=== PATIENT | male | born 1980 | race Asian ===

== ENCOUNTER 2017-10-24 23:13 | Emergency (ER) | payer OTHER ==
[2017-10-24] MEDS ORDERED: ASPIRIN 81 MG CHEWABLE TABLETS PO ONE (23:31)
--- NOTE | 2017-10-24 23:34 | PDOC ---
Attending Attestation - HPI HPI: 10/24/17 23:48 The patient is a 37 year old male, with significant past medical history of sinusitis, who presents to the emergency department with chest pain. Patient describes his chest pain as intermittent, worsens upon burping.. Patient states that around 2 pm he began experiencing the chest pain which he states went away after eating and drinking water. He rates his current pain 3/10. He denies taking any medications to relieve the pain. States he is currently on antibiotics - Levaquin. He denies any recent fevers, chills, headache or dizziness. He denies any recent nausea, vomit, diarrhea or constipation. He denies any recent shortness of breath. He denies any recent dysuria, frequency, urgency or hematuria. Family Hx: paternal HTN, diabetes. Allergies: NKA Past surgical history: None reported. Social History: Nonsmoker. Denies EtOH use and recreational drug use. PCP: Dr. Han <Vanessa Snow - Last Filed: 10/24/17 23:54> - Resident Resident Name: Jose G Lind - ED Attending Attestation I have performed the following: I have examined & evaluated the patient, The case was reviewed & discussed with the resident, I agree w/resident's findings & plan, Exceptions are as noted - Physicial Exam PE: 10/24/17 23:42 *Physical Exam General Appearance: Yes: Appropriately Dressed. No: Apparent Distress, Intoxicated HEENT: positive: EOMI, ELIAN, Normal ENT Inspection, Normal Voice, TMs Normal, Pharynx Normal. negative: Pale Conjunctivae, Photophobia, Scleral Icterus (R), Scleral Icterus (L) Neck: positive: Trachea midline, Normal Thyroid, Supple. negative: Tender, Rigid, Carotid bruit, Stridor, Lymphadenopathy (R), Lymphadenopathy (L), Thyromegaly Respiratory/Chest: positive: Lungs Clear, Normal Breath Sounds. negative: Chest Tender, Respiratory Distress, Accessory Muscle Use, Labored Respiration, RES, Crackles, Rales, Rhonchi, Stridor, Wheezing, Dullness Cardiovascular: positive: Regular Rhythm, Regular Rate, S1, S2. negative: Edema , JVD, Murmur, Bradycardia, Tachycardia Vascular Pulses: Dorsalis-Pedis (R): 2+, Doralis-Pedis (L): 2+ Gastrointestinal/Abdominal: positive: Normal Bowel Sounds, Flat, Soft. negative : Tender, Organomegaly, Pulsatile Mass, Increased Bowel Sounds, Decreased BS, Distended, Guarding, Rebound, Hernia, Hepatomegaly, Spleenomegaly Lymphatic: negative: Adenopathy, Tenderness Musculoskeletal: positive: Normal Inspection. negative: CVA Tenderness, Decreased Range of Motion Extremity: positive: Normal Capillary Refill, Normal Inspection, Normal Range of Motion, Pelvis Stable. negative: Tender, Pedal Edema, Swelling, Erythema Integumentary: positive: Normal Color, Dry, Warm. negative: Cyanotic, Erythema , Jaundice, Rash Neurologic: positive: stud driver II-XII NML intact, Fully Oriented, Alert, Normal Mood/ Affect, Motor Strength 5/5. negative: EOM Palsy, Facial Droop, Sensory Deficit - Medical Decision Making 10/25/17 01:04 Pt troponin is 8.8. Pt to be transferred for cardiac catheterization. <Reuben Garzon - Last Filed: 10/25/17 01:06>
[2017-10-24 23:35] VITALS: TEMP 98.6
[2017-10-24 23:42] VITALS: BMI 31.0
[2017-10-24] MEDS ORDERED: NITROGLYCERIN 2% OINTMENT - 1GM PACKET TD ONE ×2 (23:42→23:44)
[2017-10-24 23:43] LABS: BASO % 0.2 % (0-2.0); EOS % 1.2 % (0-4.5); HEMATOCRIT 43.3 % (35.4-49); HEMOGLOBIN 14.6 GM/dL (11.7-16.9); LYMPH % 22.8 % (8-40); MCH 29.5 pg (25.7-33.7); MCHC 33.6 g/dl (32.0-35.9); MEAN CELL VOLUME 87.7 fl (80-96); MEAN PLT VOLUME 9.1 fl (7.5-11.1); MONO % 8.9 % (3.8-10.2); NEUT % 66.9 % (42.8-82.8); PLATELET COUNT 186 K/MM3 (134-434); RBC 4.94 M/mm3 (4.00-5.60); RDW 13.5 % (11.9-15.9); WHITE BLOOD COUNT 14.1 K/mm3 (4.0-10.0)
[2017-10-24] MEDS ORDERED: ASPIRIN 81 MG CHEWABLE TABLETS ONE (23:44)
[2017-10-25 00:08] LABS: INR 1.27 (0.82-1.09); PROTHROMBIN TIME (PATIENT) 14.3 SEC (9.98-11.88)
[2017-10-25 00:19] LABS: ALBUMIN 3.7 g/dl (3.4-5.0); ANION GAP 9 (8-16); BILIRUBIN,TOTAL 1.3 mg/dL (0.2-1.0); BLOOD UREA NITROGEN 10 mg/dL (7-18); CALCIUM 8.6 mg/dL (8.5-10.1); CHLORIDE 104 mmol/L (98-107); CO2 26 mmol/L (21-32); CREATININE 1.1 mg/dL (0.7-1.3); GLUCOSE,RANDOM 126 mg/dL (74-106); MAGNESIUM 2.2 mg/dL (1.8-2.4); POTASSIUM 3.9 mmol/L (3.5-5.1); SGOT/AST 61 U/L (15-37); SGPT/ALT 69 U/L (12-78); SODIUM 139 mmol/L (136-145); TOT PROT 8.1 g/dl (6.4-8.2)
[2017-10-25 00:33] LABS: ALK PHOS 85 U/L (45-117)
[2017-10-25] MEDS ORDERED: HEPARIN NA (PORCINE) 5,000 UNITS/ML 1ML VIAL IVPUSH PRN (00:55)
[2017-10-25] MEDS ORDERED: HEPARIN NA (PORCINE) 5,000 UNITS/ML 1ML VIAL ONE (01:04)
--- NOTE | 2017-10-25 01:08 | PDOC ---
History of Present Illness - General Chief Complaint: Chest Pain Stated Complaint: CHEST PAIN Time Seen by Provider: 10/24/17 23:31 History Source: Patient Exam Limitations: No Limitations - History of Present Illness Initial Comments: 10/25/17 00:59 The patient is a 37M with no PMH who presents to the ED with CP. The patient states that he felt chest pain around 1400 today and it resolved after eating and drinking water. Around 2230, he felt the same chest pain and decided to come to the ER. The CP is retrosternal, described as pressure, initially 7/10, does not radiate, and feels better after he burps. He also states that he has had 3 days of productive cough which has been treated with day 2 of levaquin. Past History - Past Medical History Allergies/Adverse Reactions: Allergies Allergy/AdvReac Type Severity Reaction Status Date / Time No Known Allergies Allergy Verified 10/24/17 23:32 Home Medications: Ambulatory Orders NK [No Known Home Medication] 10/25/17 - Suicide/Smoking/Psychosocial Hx Smoking History: Never smoked Review of Systems - Review of Systems Able to Perform ROS?: Yes Comments:: 10/25/17 01:55 GENERAL/CONSTITUTIONAL: No fever or chills. No weakness. HEAD, EYES, EARS, NOSE AND THROAT: No change in vision. No ear pain or discharge. No sore throat. GASTROINTESTINAL: No nausea, vomiting, diarrhea, constipation, or abdominal pain. GENITOURINARY: No dysuria, frequency, hematuria, or change in urination. CARDIOVASCULAR: Positive for chest pressure. No palpitations or lightheadedness. RESPIRATORY: No cough, wheezing, shortness of breath, or hemoptysis. MUSCULOSKELETAL: No joint or muscle swelling or pain. No neck or back pain. SKIN: No rash or lesions. NEUROLOGIC: No headache, numbness, tingling, weakness, loss of consciousness, or change in strength/sensation. ENDOCRINE: No increased thirst. No abnormal weight change. HEMATOLOGIC/LYMPHATIC: No anemia, easy bleeding, or history of blood clots. ALLERGIC/IMMUNOLOGIC: No hives or skin allergy. Is the patient limited Maori proficient: No *Physical Exam - Vital Signs Last Vital Signs Temp Pulse Resp BP Pulse Ox 98.6 F 104 H 20 121/74 100 10/24/17 23:20 10/24/17 23:20 10/24/17 23:20 10/24/17 23:20 10/24/17 23:20 - Physical Exam Comments: 10/25/17 01:56 GENERAL: Well developed, well nourished. Awake and alert. No acute distress. HEENT: Normocephalic, atraumatic. Hearing grossly normal. Moist mucous membranes. PERRLA, EOMI. No conjunctival pallor. Sclera are non-icteric. Oropharynx is clear. NECK: Supple. Full ROM. No JVD. Carotid pulses 2+ and symmetric, without bruits. CARDIOVASCULAR: Regular rate and rhythm. No murmurs, rubs, or gallops. Distal pulses are 2+ and symmetric. PULMONARY: No evidence of respiratory distress. Lungs clear to auscultation bilaterally. No wheezing, rales or rhonchi. ABDOMINAL: Soft. Non-tender. Non-distended. No rebound or guarding. No organomegaly. Normoactive bowel sounds. GENITOURINARY: No CVA tenderness bilaterally. MUSCULOSKELETAL: Normal range of motion at all joints. No bony deformities or tenderness. EXTREMITIES: No cyanosis. No clubbing. No edema. No calf tenderness. SKIN: Warm and dry. Normal capillary refill. No rashes. No jaundice. NEUROLOGICAL: Alert, awake, appropriate. Cranial nerves 2-12 intact. Normal speech. Gait is normal without ataxia. PSYCHIATRIC: Cooperative. Good eye contact. Appropriate mood and affect. Heart Score/ECG Review #1 Compared to previous ECG there are: Previous ECG unavail 10/25/17 01:57 Tachycardic to 105 with J point elevations vs GONZALES in inferior and lateral leads Narrow QRS QT WNL ED Treatment Course - LABORATORY CBC & Chemistry Diagram: 10/24/17 23:30 10/24/17 23:30 - ADDITIONAL ORDERS Additional order review: Laboratory Results 10/24/17 10/24/17 23:30 23:30 PT with INR 14.30 H INR 1.27 H Sodium 139 Potassium 3.9 Chloride 104 Carbon Dioxide 26 Anion Gap 9 BUN 10 Creatinine 1.1 Creat Clearance w eGFR > 60 Random Glucose 126 H Calcium 8.6 Magnesium 2.2 Total Bilirubin 1.3 H AST 61 H ALT 69 Alkaline Phosphatase 85 Creatine Kinase 517 H Creatine Kinase Index 7.0 H* CK-MB (CK-2) 36.367 H Troponin I 8.80 H* Total Protein 8.1 Albumin 3.7 10/24/17 23:30 RBC 4.94 MCV 87.7 MCHC 33.6 RDW 13.5 MPV 9.1 Neutrophils % 66.9 Lymphocytes % 22.8 Monocytes % 8.9 Eosinophils % 1.2 Basophils % 0.2 - RADIOLOGY Radiology Studies Ordered: Category Date Time Status CHEST PA & LAT [RAD] Stat Radiology 10/25/17 00:04 Taken - Medications Given in the ED: ED Medications Discontinued Medications Generic Name Dose Route Start Last Admin Trade Name Freq PRN Reason Stop Dose Admin Aspirin 162 mg 10/24/17 23:31 10/24/17 23:48 Asa - PO 10/24/17 23:32 162 mg ONCE ONE Administration Nitroglycerin 0.5 inch 10/24/17 23:42 10/24/17 23:48 Nitro-Bid 2% Paste - TD 10/24/17 23:43 0.5 inch ONCE ONE Administration Medical Decision Making - Medical Decision Making 10/25/17 01:57 The patient is a 37M with no PMH who is presenting with atypical CP. EKG showing GONZALES vs J point elevation. Trop of 8.0. ASA given. Heparin bolus given. [facility] accepted transfer to CCU, Dr. Macias. *DC/Admit/Observation/Transfer Diagnosis at time of Disposition: STEMI (ST elevation myocardial infarction) Qualifiers: Involved coronary artery: unspecified coronary artery Qualified Code(s): I21.3 - ST elevation (STEMI) myocardial infarction of unspecified site - Discharge Dispostion Disposition: TRANSFER ACUTE CARE/OTHER HOSP Condition at time of disposition: Guarded Admit: No - Referrals Referrals: Keith Han MD [Primary Care Provider] - - Patient Instructions - Post Discharge Activity - Transfer to Acute Care Facility Receiving Facility: [facility]. Accepting Physician:: Dr. Macias Transfer comment: 10/25/17 01:59 Transfer to CCU with CC nurse on team.
[2017-10-25 03:02] VITALS: BP 129/72; PULSE 97
--- NOTE | 2017-10-25 10:26 | EKG ---
Test Reason : Blood Pressure : / mmHG Vent. Rate : 115 BPM Atrial Rate : 115 BPM P-R Int : 146 ms QRS Dur : 086 ms QT Int : 338 ms P-R-T Axes : 052 039 035 degrees QTc Int : 467 ms SINUS TACHYCARDIA J poin tST- elevation noted NO PREVIOUS ECGS AVAILABLE Confirmed by JACQUELYN BURNS, NATE ([id number] on 10/25/2017 10:25:37 AM Referred By: Confirmed By:NATE VALLADARES MD
--- NOTE | 2017-10-28 13:32 | EKG ---
Test Reason : Blood Pressure : / mmHG Vent. Rate : 074 BPM Atrial Rate : 074 BPM P-R Int : 138 ms QRS Dur : 092 ms QT Int : 378 ms P-R-T Axes : 049 057 054 degrees QTc Int : 419 ms NORMAL SINUS RHYTHM ST ELEVATION CONSIDER INFEROLATERAL INJURY OR ACUTE INFARCT ACUTE PA / STEMI ABNORMAL ECG NO PREVIOUS ECGS AVAILABLE Confirmed by MD DEMIAN, MORENO ([id number]) on 10/28/2017 1:32:06 PM Referred By: Confirmed By:MORENO ARCINIEGA MD
== END 2017-10-25 03:05 | disposition short-term general hospital (02) ==
LOC: JER 23:13
PROC: 3E033GC Introduction of Other Therapeutic Substance into Peripheral Vein, Percutaneous Approach (ICD-10-PCS; principal; 2017-10-24)
DX: I21.29 ST elevation (STEMI) myocardial infarction involving other sites (principal)
CPT/HCPCS: 36415; 71046-TC; 80053; 82550; 82553; 83735; 84484; 85025; 85610; 93005; 93010; 99283-25; J1644